=== PATIENT | male | born 1945 | race Hispanic/Latino ===

== ENCOUNTER 2021-02-23 13:37 | Emergency (ER) | payer MEDICAID, MEDICARE ==
[2021-02-23 14:13] VITALS: BP 150/88
--- NOTE | 2021-02-23 16:07 | Event Note ---
ED Screening Note Date of service: 02/23/21 Time: 16:06 ED Screening Note: Patient here with vague complaints of weakness and diffuse body pains Pt hard of hearing This initial assessment/diagnostic orders/clinical plan/treatment(s) is/are subject to change based on patients health status, clinical progression and re- assessment by fellow clinical providers in the ED. Further treatment and workup at subsequent clinical providers discretion. Patient/guardian urged not to elope from the ED as their condition may be serious if not clinically assessed and managed. Initial orders include: Labs EKG
[2021-02-23 16:13] LABS: Basophils # (Auto) 0.1 K/mm3 (0.0-0.1); Eosinophils % (Auto) 0.7 % (0.0-4.3); Hematocrit 38.1 % (35.5-45.6); Hemoglobin 13.2 gm/dl (11.8-15.2); Lymphocytes # (Auto) 1.1 K/mm3 (1.2-5.4); Lymphocytes % (Auto) 16.4 % (13.4-35.0); Mean Corpuscular HGB Conc 35 % (32-34); Mean Corpuscular Volume 84 fl (84-94); Monocytes # (Auto) 0.6 K/mm3 (0.0-0.8); Monocytes % (Auto) 9.8 % (0.0-7.3); Platelet Count 447 K/mm3 (140-440); Red Blood Count 4.56 M/mm3 (3.65-5.03); Red Cell Distribution Width 13.6 % (13.2-15.2)
[2021-02-23] MEDS ORDERED: traMADol 50 MG TAB PO ONE (16:25)
--- NOTE | 2021-02-23 16:33 | Emergency Department Report ---
- General Chief complaint: Weakness Stated complaint: WEAKNESS Time Seen by Provider: 02/23/21 16:07 Source: patient Mode of arrival: Ambulatory Limitations: Other (hard of hearing) - History of Present Illness Initial comments: CC: "He will not go to the doctor." HPI: This is a 75 yo male with hx of being hard of hearing who presents with multiple concerns. For 2 weeks, he has had generalized weakness. He has had poor appetite. He has lost weight. He has had unstable gait for several months with frequent falls. He has had neck, right shoulder and right arm pain for se veral months. He takes tylenol and ibuprofen daily. He has stepped in glass recently. He has right foot pain and ulcer as a result. He does not have known medical issues. He refused to obtain primary medical care. His wants him checked out for an ear infection. MD Complaint: generalized weakness -: week(s) (2 weeks) Location: generalized Severity: mild, moderate Consistency: constant Improves with: none Worsens with: none Context: other (poor intake, weight loss) Associated Symptoms: other (right foot pain) - Related Data Allergies Allergy/AdvReac Type Severity Reaction Status Date / Time No Known Allergies Allergy Unverified 02/23/21 14:09 ED Review of Systems ROS: Stated complaint: WEAKNESS Other details as noted in HPI Comment: All other systems reviewed and negative Constitutional: malaise, weakness ENT: denies: throat pain Respiratory: denies: cough, shortness of breath Cardiovascular: denies: chest pain Gastrointestinal: denies: abdominal pain, nausea, vomiting Neurological: denies: headache ED Past Medical Hx - Past Medical History Previous Medical History?: No - Surgical History Past Surgical History?: Yes Additional Surgical History: "blockage" surgery in the 80's - Family History Family history: other (unknown to patient) - Social History Smoking Status: Never Smoker Substance Use Type: None ED Physical Exam - General Limitations: Other General appearance: alert, in no apparent distress, other (fair, hard of hearing) - Head Head exam: Present: atraumatic, normocephalic - Eye Eye exam: Present: normal appearance - ENT ENT exam: Present: mucous membranes moist, TM's normal bilaterally - Neck Neck exam: Present: normal inspection, full ROM. Absent: tenderness, meningismus - Respiratory Respiratory exam: Present: normal lung sounds bilaterally. Absent: respiratory distress, wheezes, rales, rhonchi, stridor - Cardiovascular Cardiovascular Exam: Present: regular rate, normal rhythm, normal heart sounds. Absent: systolic murmur, diastolic murmur, rubs, gallop - GI/Abdominal GI/Abdominal exam: Present: soft, normal bowel sounds. Absent: distended, tenderness, guarding, rebound - Rectal Rectal exam: Present: deferred - Extremities Exam Extremities exam: Present: normal inspection - Expanded Upper Extremity Exam Right General: Present: other, normal inspection Shoulder Exam: Present: normal inspection, full ROM. Absent: tenderness, swelling, abrasion Upper Arm exam: Present: normal inspection, full ROM. Absent: tenderness, swelling Elbow exam: Present: normal inspection, full ROM. Absent: tenderness, swelling Forearm Wrist exam: Present: normal inspection, full ROM - Expanded Lower Extremity Exam Right Knee exam: Present: normal inspection, full ROM Lower Leg exam: Present: normal inspection, full ROM Ankle exam: Present: normal inspection, full ROM Foot/Toe exam: Present: erythema (1.5 cm x 0.8 cm right medial MTP of right foot, minimal surrounding erythema no fluctuance no purulence) - Neurological Exam Neurological exam: Present: alert, oriented X3, other (shuffling gait) - Psychiatric Psychiatric exam: Present: normal affect, normal mood - Skin Skin exam: Present: warm, dry, intact, normal color. Absent: rash ED Course Vital Signs 02/23/21 14:12 Temperature 97.4 F L Pulse Rate 96 H Respiratory 18 Rate Blood Pressure 150/88 O2 Sat by Pulse 98 Oximetry ED Medical Decision Making - Lab Data Result diagrams: 02/23/21 15:57 02/23/21 15:57 - Medical Decision Making 1. neck/shoulder pain suspect cervical DDD: Originally planned to discharge patient with tramadol 2. gait instablity, frequent falls suspect deconditioning vs Parkinson's vs Alzheimer's, will need outpatient medical care 3. weakness/poor appetite: workup initiated to rule out infection organ dysfunction, malignancy, suspect dementia as the cause of decline 4. right foot ulcer possible foreign body, plan to refer to water inspector I spoke with patient and after Mr. Salas was treated for neck and shoulder pain with tramadol. Tramadol did not provide any pain relief. I ordered [facility]. I updated and patient about the plan of care. With history of weakness and weight loss, CT scan of the chest abdomen pelvis indicated to rule out malignancy obstructive process infection. I was informed by triage nurse that patient and eloped. I spoke with patient and several times to explain the plan of care. They seemed agreeable on each occasion. Critical care attestation.: If time is entered above; I have spent that time in minutes in the direct care of this critically ill patient, excluding procedure time. ED Disposition Clinical Impression: Generalized weakness, Right foot ulcer Disposition: 07 LEFT AWOL/ELOPED Is pt being admited?: No Does the pt Need Aspirin: No Condition: Stable Referrals: PRIMARY CARE, [Primary Care Provider] - 3-5 Days
[2021-02-23 16:34] LABS: Alanine Aminotransferase 24 units/L (7-56); BUN/Creatinine Ratio 11; Blood Urea Nitrogen 9 mg/dL (9-20); Calcium 8.9 mg/dL (8.4-10.2); Hemolysis Index 7
[2021-02-23] MEDS ORDERED: HYDROcodone/ACETAMINOPHEN 5-325 MG TAB PO ONE (18:05)
== END 2021-02-23 18:30 | disposition left against medical advice (07) ==
LOC: ED 13:37
DX: M62.81 Muscle weakness (generalized) (principal); L97.511 Non-pressure chronic ulcer of other part of right foot limited to breakdown of skin
CPT/HCPCS: 36415; 80053; 84484; 85025; 99283